=== PATIENT | female | born 1945 | race Caucasian/White ===

== ENCOUNTER 2019-05-23 03:29 | Inpatient (IN) ==
[2019-05-23] MEDS ORDERED: *HR* Heparin 5,000 UNIT/ML VIAL IVP PRN ×2 (06:30)
[2019-05-23] MEDS ORDERED: Heparin 25,000 UNIT/250 ML D5W 25,000 UNIT/250 ML IV.SOLN IVC SCH (06:30)
[2019-05-23 07:26] LABS: Hematocrit 29.2 % (35.3-44.9); Hemoglobin 9.5 g/dL (11.5-15.4); Mean Corpuscular HGB Conc 32.5 g/dL (31.6-35.5); Mean Corpuscular Hemoglobin 28.3 pg (28.0-33.3); Mean Corpuscular Volume 86.9 fL (83.0-100.0); Mean Platelet Volume 9.8 fL (9.4-12.4); Platelet Count 275 K/mcL (140-400); Red Blood Count 3.36 M/mcL (3.82-4.97); Red Cell Distribution Width 15.8 % (11.5-14.5); White Blood Count 12.1 K/mcL (4.3-11.1)
[2019-05-23 07:38] LABS: Heparin anti-factor XA UFH 0.78 IU/mL (0.30-0.70); INR 1.3
[2019-05-23 08:59] LABS: BUN/Creatinine Ratio 9 (6-26); Blood Urea Nitrogen 4 mg/dL (8-23); Calcium 8.9 mg/dL (8.6-10.3); Carbon Dioxide 28 mEq/L (23-29); Chloride 94 mEq/L (98-107); Glucose 259 mg/dL (70-105); Osmolality,Calculated 282 (280-300); Potassium 3.9 mEq/L (3.5-5.1); Sodium 133 mEq/L (136-145); eGFR For African Americans > 60 (> 60); eGFR For Non-African Americans > 60 (> 60)
[2019-05-23] MEDS ORDERED: Naloxone 0.4 MG/ML INJ IVP PRN (09:57)
[2019-05-23] MEDS ORDERED: Ondansetron ODT 4 MG TAB.RAPDIS SL PRN (09:57)
[2019-05-23] MEDS ORDERED: Levalbuterol Neb 0.63 MG/3 ML IH PRN (10:03)
[2019-05-23] MEDS ORDERED: D5% in Water 1,000 ML IVC PRN (10:21)
[2019-05-23] MEDS ORDERED: Dextrose Gel 15 GM/37.5 ML TUBE PO PRN ×2 (10:21)
[2019-05-23] MEDS ORDERED: *HR* Dextrose 50 % in Water (Syg) 50 ML SYRINGE IVP PRN (10:21)
[2019-05-23] MEDS ORDERED: Furosemide 40 MG/4 ML VIAL IVP ONE (10:28)
[2019-05-23 10:48] LABS: Magnesium 1.3 mg/dL (1.6-2.6)
[2019-05-23 10:58] LABS: Troponin I 0.04 ng/mL (< 0.04)
[2019-05-23] MEDS ORDERED: cefTRIAXone 1,000 MG in Water for inj. (sterile) 10 ML IVP SCH (11:00)
[2019-05-23] MEDS ORDERED: Azithromycin 500 MG in 0.9 % Sodium Chloride 250 ML IVPB SCH (11:00)
[2019-05-23] MEDS: Ipratropium Neb 0.5 MG NEBULIZER IH SCH ×3 (11:11→19:58)
[2019-05-23] MEDS ORDERED: *HR* LORazepam 2 MG/ML VIAL IVP ONE (11:20)
[2019-05-23] MEDS: MethylPREDNISolone 40 MG/ML VIAL IVP SCH ×3 (11:21→23:31)
[2019-05-23] MEDS: Insulin LISPRO 300 UNITS/3 ML VIAL SQ SCH ×3 (11:21→20:19)
[2019-05-23] MEDS ORDERED: Perflutren Lipid Microsphere 1.3 ML in 0.9 % Sodium Chloride 8.7 ML IVP ONE (17:51)
[2019-05-23] MEDS: cefTRIAXone 1,000 MG in Water for inj. (sterile) 10 ML IVP SCH (18:16)
[2019-05-23 18:32] LABS: % Iron Saturation 8 % (15-50); Iron 22 mcg/dL (50-170); Transferrin 208 mg/dL (203-362)
[2019-05-23 18:49] LABS: Ferritin 76 ng/mL (10-120)
[2019-05-23 18:55] LABS: Folate 20.7 ng/mL (3.0-16.0)
[2019-05-23] MEDS: Levalbuterol Neb 1.25 MG/3 ML IH SCH (21:41)
[2019-05-24 01:29] LABS: Hematocrit 31.3 % (35.3-44.9); Hemoglobin 9.9 g/dL (11.5-15.4); Mean Corpuscular HGB Conc 31.6 g/dL (31.6-35.5); Mean Corpuscular Hemoglobin 27.9 pg (28.0-33.3); Mean Corpuscular Volume 88.2 fL (83.0-100.0); Mean Platelet Volume 9.9 fL (9.4-12.4); Platelet Count 293 K/mcL (140-400); Red Blood Count 3.55 M/mcL (3.82-4.97); Red Cell Distribution Width 15.7 % (11.5-14.5); White Blood Count 8.3 K/mcL (4.3-11.1)
[2019-05-24 01:46] LABS: BUN/Creatinine Ratio 15 (6-26); Blood Urea Nitrogen 7 mg/dL (8-23); Calcium 9.2 mg/dL (8.6-10.3); Carbon Dioxide 29 mEq/L (23-29); Chloride 94 mEq/L (98-107); Glucose 234 mg/dL (70-105); Osmolality,Calculated 280 (280-300); Potassium 3.6 mEq/L (3.5-5.1); Sodium 132 mEq/L (136-145); eGFR For African Americans > 60 (> 60); eGFR For Non-African Americans > 60 (> 60)
[2019-05-24] MEDS: Levalbuterol Neb 1.25 MG/3 ML IH SCH ×4 (03:26→21:37)
[2019-05-24] MEDS: MethylPREDNISolone 40 MG/ML VIAL IVP SCH ×3 (05:28→17:50)
[2019-05-24] MEDS ORDERED: cefTRIAXone 1,000 MG in Water for inj. (sterile) 10 ML IVP SCH (09:00)
[2019-05-24] MEDS ORDERED: Azithromycin 500 MG in 0.9 % Sodium Chloride 250 ML IVPB SCH (09:00)
[2019-05-24] MEDS: levoFLOXacin 750 MG/150 ML 750 MG/150 ML BAG IVPB SCH (09:29)
[2019-05-24] MEDS: Nicotine 21 MG PATCH.TD24 TD SCH (09:30)
[2019-05-24] MEDS: Furosemide 40 MG/4 ML VIAL IVP SCH ×2 (09:30→20:39)
[2019-05-24] MEDS: Apixaban 5 MG TABLET PO SCH ×2 (09:30→20:39)
[2019-05-24] MEDS: Insulin LISPRO 300 UNITS/3 ML VIAL SQ SCH ×4 (09:35→20:39)
[2019-05-24] MEDS: Fluticasone Propionate Nasal 50 MCG/SPRAY BOTTLE NS SCH (09:36)
[2019-05-24] MEDS: Diltiazem CD (24hr) 120 MG CAPSULE PO SCH (09:39)
[2019-05-24] MEDS: Budesonide/Formoterol 160/4.5 1 PUFF INH IH SCH ×2 (10:28→21:36)
[2019-05-24] MEDS ORDERED: *HR* Metoprolol 5 MG/5 ML VIAL IVP PRN (12:00)
[2019-05-24] MEDS: *HR* LORazepam 0.5 MG TABLET PO PRN (13:33)
[2019-05-24] MEDS: cefTRIAXone 1,000 MG in Water for inj. (sterile) 10 ML IVP SCH (17:50)
[2019-05-24] MEDS: Insulin DETEMIR 100 UNIT/ML X5UNITS SQ SCH (21:59)
[2019-05-25] MEDS: MethylPREDNISolone 40 MG/ML VIAL IVP SCH ×5 (01:44→23:05)
[2019-05-25] MEDS: Levalbuterol Neb 1.25 MG/3 ML IH SCH ×4 (03:20→21:37)
[2019-05-25 06:33] LABS: Basophils % 0.1 %; Hematocrit 29.8 % (35.3-44.9); Hemoglobin 9.8 g/dL (11.5-15.4); Immature Granulocytes % 0.6 % (0-4); Lymphocytes # 0.7 K/mcL (0.6-4.6); Lymphocytes % 5.4 %; Mean Corpuscular HGB Conc 32.9 g/dL (31.6-35.5); Mean Corpuscular Hemoglobin 28.7 pg (28.0-33.3); Mean Corpuscular Volume 87.1 fL (83.0-100.0); Mean Platelet Volume 9.6 fL (9.4-12.4); Monocytes # 0.3 K/mcL (0.0-1.3); Monocytes % 2.7 %; Neutrophils # 11.4 K/mcL (1.6-8.9); Platelet Count 283 K/mcL (140-400); Red Blood Count 3.42 M/mcL (3.82-4.97); Red Cell Distribution Width 15.8 % (11.5-14.5); Segmented Neutrophils % 91.2 %
[2019-05-25 06:34] LABS: White Blood Count 12.5 K/mcL (4.3-11.1)
[2019-05-25 06:58] LABS: BUN/Creatinine Ratio 29 (6-26); Blood Urea Nitrogen 16 mg/dL (8-23); Calcium 9.6 mg/dL (8.6-10.3); Carbon Dioxide 35 mEq/L (23-29); Chloride 90 mEq/L (98-107); Glucose 273 mg/dL (70-105); Magnesium 1.6 mg/dL (1.6-2.6); Osmolality,Calculated 293 (280-300); Phosphorous 3.8 mg/dL (2.7-4.5); Potassium 3.5 mEq/L (3.5-5.1); Sodium 136 mEq/L (136-145); eGFR For African Americans > 60 (> 60); eGFR For Non-African Americans > 60 (> 60)
[2019-05-25] MEDS: levoFLOXacin 750 MG/150 ML 750 MG/150 ML BAG IVPB SCH (08:57)
[2019-05-25] MEDS: Insulin LISPRO 300 UNITS/3 ML VIAL SQ SCH ×4 (08:58→21:59)
[2019-05-25] MEDS: Nicotine 21 MG PATCH.TD24 TD SCH (09:01)
[2019-05-25] MEDS: Furosemide 40 MG/4 ML VIAL IVP SCH ×2 (09:02→21:58)
[2019-05-25] MEDS: Diltiazem CD (24hr) 120 MG CAPSULE PO SCH (09:03)
[2019-05-25] MEDS: Apixaban 5 MG TABLET PO SCH ×2 (09:03→21:59)
[2019-05-25] MEDS: Budesonide/Formoterol 160/4.5 1 PUFF INH IH SCH ×2 (10:20→21:37)
[2019-05-25] MEDS: Fluticasone Propionate Nasal 50 MCG/SPRAY BOTTLE NS SCH (10:30)
[2019-05-25] MEDS: cefTRIAXone 1,000 MG in Water for inj. (sterile) 10 ML IVP SCH (17:19)
[2019-05-25] MEDS: Insulin DETEMIR 100 UNIT/ML X5UNITS SQ SCH (21:58)
[2019-05-25] MEDS: *HR* LORazepam 0.5 MG TABLET PO PRN (21:59)
[2019-05-25] MEDS: Acetaminophen 325 MG TABLET PO PRN (21:59)
[2019-05-26] MEDS: Levalbuterol Neb 1.25 MG/3 ML IH SCH ×4 (03:33→22:17)
[2019-05-26] MEDS: MethylPREDNISolone 40 MG/ML VIAL IVP SCH ×2 (05:28→19:54)
[2019-05-26] MEDS ORDERED: MethylPREDNISolone 40 MG/ML VIAL IVP SCH (09:00)
[2019-05-26 09:52] LABS: Basophils % 0.1 %; Eosinophils % 0.1 %; Hematocrit 35.2 % (35.3-44.9); Hemoglobin 11.2 g/dL (11.5-15.4); Lymphocytes # 0.5 K/mcL (0.6-4.6); Lymphocytes % 4.6 %; Mean Corpuscular HGB Conc 31.8 g/dL (31.6-35.5); Mean Corpuscular Hemoglobin 28.3 pg (28.0-33.3); Mean Corpuscular Volume 88.9 fL (83.0-100.0); Mean Platelet Volume 10.2 fL (9.4-12.4); Monocytes # 0.4 K/mcL (0.0-1.3); Monocytes % 3.6 %; Neutrophils # 9.1 K/mcL (1.6-8.9); Platelet Count 326 K/mcL (140-400); Red Blood Count 3.96 M/mcL (3.82-4.97); Red Cell Distribution Width 15.9 % (11.5-14.5); Segmented Neutrophils % 90.6 %
[2019-05-26] MEDS: Furosemide 40 MG/4 ML VIAL IVP SCH ×2 (09:54→19:54)
[2019-05-26] MEDS: levoFLOXacin 750 MG/150 ML 750 MG/150 ML BAG IVPB SCH (09:57)
[2019-05-26] MEDS: Apixaban 5 MG TABLET PO SCH ×2 (10:01→19:53)
[2019-05-26] MEDS: Fluticasone Propionate Nasal 50 MCG/SPRAY BOTTLE NS SCH (10:02)
[2019-05-26] MEDS: Diltiazem CD (24hr) 120 MG CAPSULE PO SCH (10:02)
[2019-05-26] MEDS: Nicotine 21 MG PATCH.TD24 TD SCH (10:03)
[2019-05-26] MEDS: Insulin LISPRO 300 UNITS/3 ML VIAL SQ SCH ×4 (10:03→19:54)
[2019-05-26 10:10] LABS: BUN/Creatinine Ratio 30 (6-26); Blood Urea Nitrogen 21 mg/dL (8-23); Carbon Dioxide 37 mEq/L (23-29); Chloride 87 mEq/L (98-107); Glucose 352 mg/dL (70-105); Magnesium 1.8 mg/dL (1.6-2.6); Osmolality,Calculated 301 (280-300); Phosphorous 3.5 mg/dL (2.7-4.5); Potassium 3.6 mEq/L (3.5-5.1); Sodium 137 mEq/L (136-145); eGFR For African Americans > 60 (> 60); eGFR For Non-African Americans > 60 (> 60)
[2019-05-26] MEDS: Budesonide/Formoterol 160/4.5 1 PUFF INH IH SCH ×2 (10:36→22:17)
[2019-05-26] MEDS ORDERED: Magnesium Oxide 400 MG TABLET PO ONE (12:37)
[2019-05-26 14:25] LABS: Immunoglobulin A (CELIAC) 213 mg/dL (68-408); Immunoglobulin G 459 mg/dL (768-1632); Immunoglobulin M 5 mg/dL (35-263)
[2019-05-26] MEDS: Magic Mouthwash 10 ML UD Cup PO SCH (17:10)
[2019-05-26] MEDS: cefTRIAXone 1,000 MG in Water for inj. (sterile) 10 ML IVP SCH (17:14)
[2019-05-26] MEDS: *HR* LORazepam 0.5 MG TABLET PO PRN (19:53)
[2019-05-26] MEDS: Acetaminophen 325 MG TABLET PO PRN (19:53)
[2019-05-26] MEDS: Insulin DETEMIR 100 UNIT/ML X5UNITS SQ SCH (19:57)
[2019-05-26 22:30] LABS: Kappa Qnt Free Light Chains 1.03 mg/dL (0.33-1.94); Lambda Qnt Free Light Chains 1.24 mg/dL (0.57-2.63)
[2019-05-27] MEDS: Levalbuterol Neb 1.25 MG/3 ML IH SCH ×2 (03:20→10:40)
[2019-05-27] MEDS: MethylPREDNISolone 40 MG/ML VIAL IVP SCH (07:52)
[2019-05-27] MEDS: Magic Mouthwash 10 ML UD Cup PO SCH (07:53)
[2019-05-27] MEDS: Nicotine 21 MG PATCH.TD24 TD SCH (07:53)
[2019-05-27] MEDS: Apixaban 5 MG TABLET PO SCH (07:53)
[2019-05-27] MEDS: Furosemide 40 MG/4 ML VIAL IVP SCH (07:53)
[2019-05-27] MEDS: Diltiazem CD (24hr) 120 MG CAPSULE PO SCH (07:53)
[2019-05-27] MEDS: Fluticasone Propionate Nasal 50 MCG/SPRAY BOTTLE NS SCH (07:54)
[2019-05-27] MEDS: Insulin LISPRO 300 UNITS/3 ML VIAL SQ SCH (07:54)
[2019-05-27] MEDS: levoFLOXacin 750 MG/150 ML 750 MG/150 ML BAG IVPB SCH (07:55)
[2019-05-27] MEDS: Budesonide/Formoterol 160/4.5 1 PUFF INH IH SCH (10:40)
[2019-05-27 11:57] VITALS: BP 149/58
[2019-05-28 02:09] LABS: Alpha 2 Globulin (PEP) 1.31 g/dL (0.48-1.05)
[2019-05-28 09:56] LABS: Immunoglobulin G 502 mg/dL (768-1632)
[2019-05-28 09:57] LABS: IFE Reflexed IFE Done; Immunoglobulin A 235 mg/dL (68-408); Immunoglobulin M 6 mg/dL (35-263)
== END 2019-05-27 12:40 | disposition home health service (06) | DRG 177 ==
LOC: CDU → SUATTDRO 05:09 → CDU 16:08 → SUATTDRO 05-24 14:38 → 2ANU 05-27 05:29 → CDU 05-27 05:43
PROVIDERS: ADMIT Family Medicine; ATTEND Internal Medicine

== ENCOUNTER 2019-11-02 13:47 | Inpatient (IN) ==
[2019-11-02] MEDS ORDERED: Ondansetron 4 MG/2 ML VIAL IVP PRN (15:30)
[2019-11-02] MEDS ORDERED: Naloxone 0.4 MG/ML INJ IVP PRN ×2 (15:30→17:36)
[2019-11-02] MEDS ORDERED: Dextrose Gel 15 GM/37.5 ML TUBE PO PRN ×2 (20:29)
[2019-11-02] MEDS ORDERED: *HR* Dextrose 50 % in Water (Syg) 50 ML SYRINGE IVP PRN (20:29)
[2019-11-02] MEDS ORDERED: D5% in Water 1,000 ML IVC PRN (20:29)
[2019-11-02] MEDS: Insulin LISPRO 300 UNITS/3 ML VIAL SQ SCH (22:18)
[2019-11-03] MEDS ORDERED: Ipratropium/Albuterol Neb 3 ML IH PRN
[2019-11-03] MEDS: Acetaminophen 325 MG TABLET PO PRN ×3 (01:08→15:41)
[2019-11-03 05:40] LABS: Basophils # 0.1 K/mcL (0.0-0.2); Basophils % 0.5 %; Eosinophils # 0.2 K/mcL (0.0-0.6); Eosinophils % 1.4 %; Hematocrit 25.9 % (35.3-44.9); Hemoglobin 7.8 g/dL (11.5-15.4); Immature Granulocytes % 0.5 % (0-4); Lymphocytes # 2.8 K/mcL (0.6-4.6); Lymphocytes % 21.5 %; Mean Corpuscular HGB Conc 30.1 g/dL (31.6-35.5); Mean Corpuscular Hemoglobin 24.8 pg (28.0-33.3); Mean Corpuscular Volume 82.5 fL (83.0-100.0); Mean Platelet Volume 8.9 fL (9.4-12.4); Monocytes # 1.1 K/mcL (0.0-1.3); Monocytes % 8.1 %; Platelet Count 468 K/mcL (140-400); Red Blood Count 3.14 M/mcL (3.82-4.97); Red Cell Distribution Width 16.6 % (11.5-14.5); White Blood Count 13.2 K/mcL (4.3-11.1)
[2019-11-03 06:01] LABS: BUN/Creatinine Ratio 13 (6-26); Blood Urea Nitrogen 6 mg/dL (8-23); Calcium 9.3 mg/dL (8.6-10.3); Carbon Dioxide 37 mEq/L (23-29); Chloride 91 mEq/L (98-107); Glucose 97 mg/dL (70-105); Magnesium 1.5 mg/dL (1.6-2.6); Osmolality,Calculated 276 (280-300); Potassium 3.5 mEq/L (3.5-5.1); Sodium 134 mEq/L (136-145); eGFR For African Americans > 60 (> 60); eGFR For Non-African Americans > 60 (> 60)
[2019-11-03] MEDS: Insulin LISPRO 300 UNITS/3 ML VIAL SQ SCH ×4 (07:30→20:18)
[2019-11-03] MEDS: levoFLOXacin 750 MG/150 ML 750 MG/150 ML BAG IVPB SCH (08:17)
[2019-11-03 09:31] LABS: Estimated Average Glucose 186 mg/dl
[2019-11-03] MEDS: predniSONE 20 MG TABLET PO SCH (15:40)
[2019-11-03] MEDS: Furosemide 20 MG TABLET PO SCH (15:41)
[2019-11-03] MEDS: DilTIAZem CD (24hr) 120 MG CAP.ER.24H PO SCH (15:41)
[2019-11-03] MEDS: Ipratropium/Albuterol Neb 3 ML IH SCH ×3 (15:56→21:20)
[2019-11-03] MEDS: *HR* OxyCODONE Immed Rel 5 MG TABLET PO PRN (17:57)
[2019-11-03] MEDS: *HR* LORazepam 0.5 MG TABLET PO PRN (18:07)
[2019-11-03] MEDS: hydroCHLOROthiazide 25 MG TABLET PO SCH (18:07)
[2019-11-03] MEDS ORDERED: Insulin DETEMIR 100 UNIT/ML X5UNITS SQ SCH (21:00)
[2019-11-04] MEDS ORDERED: Insulin LISPRO 300 UNITS/3 ML VIAL SQ SCH ×2 (01:09→01:11)
[2019-11-04] MEDS: Insulin LISPRO 300 UNITS/3 ML VIAL SQ SCH ×5 (01:33→23:31)
[2019-11-04 02:53] LABS: Basophils % 0.2 %; Eosinophils % 0.1 %; Hematocrit 24.3 % (35.3-44.9); Hemoglobin 7.5 g/dL (11.5-15.4); Immature Granulocytes % 1.4 % (0-4); Lymphocytes # 1.9 K/mcL (0.6-4.6); Lymphocytes % 11.3 %; Mean Corpuscular HGB Conc 30.9 g/dL (31.6-35.5); Mean Corpuscular Hemoglobin 24.9 pg (28.0-33.3); Mean Corpuscular Volume 80.7 fL (83.0-100.0); Mean Platelet Volume 8.9 fL (9.4-12.4); Monocytes # 0.3 K/mcL (0.0-1.3); Monocytes % 1.7 %; Neutrophils # 14.1 K/mcL (1.6-8.9); Platelet Count 471 K/mcL (140-400); Red Blood Count 3.01 M/mcL (3.82-4.97); Red Cell Distribution Width 16.6 % (11.5-14.5); Segmented Neutrophils % 85.3 %; White Blood Count 16.5 K/mcL (4.3-11.1)
[2019-11-04 02:59] LABS: INR 1.4; Prothrombin Time 15.7 Seconds (9.4-12.1)
[2019-11-04 03:12] LABS: BUN/Creatinine Ratio 23 (6-26); Blood Urea Nitrogen 10 mg/dL (8-23); Calcium 9.4 mg/dL (8.6-10.3); Carbon Dioxide 33 mEq/L (23-29); Chloride 89 mEq/L (98-107); Glucose 253 mg/dL (70-105); Osmolality,Calculated 280 (280-300); Potassium 4.2 mEq/L (3.5-5.1); Sodium 131 mEq/L (136-145); eGFR For African Americans > 60 (> 60); eGFR For Non-African Americans > 60 (> 60)
[2019-11-04] MEDS: Ipratropium/Albuterol Neb 3 ML IH SCH ×4 (03:47→22:05)
[2019-11-04] MEDS: hydroCHLOROthiazide 25 MG TABLET PO SCH (08:14)
[2019-11-04] MEDS: DilTIAZem CD (24hr) 120 MG CAP.ER.24H PO SCH (08:14)
[2019-11-04] MEDS: Furosemide 20 MG TABLET PO SCH (08:15)
[2019-11-04] MEDS: predniSONE 20 MG TABLET PO SCH (08:15)
[2019-11-04] MEDS: levoFLOXacin 750 MG/150 ML 750 MG/150 ML BAG IVPB SCH (08:15)
[2019-11-04] MEDS ORDERED: Cefepime HCl 2,000 MG in Water for inj. (sterile) 20 ML IVP SCH (08:28)
[2019-11-04] MEDS ORDERED: *HR* FentaNYL (PF) 100 MCG/2 ML VIAL IVP PRN (09:00)
[2019-11-04] MEDS ORDERED: Ondansetron 4 MG/2 ML VIAL IVP ONE (09:00)
[2019-11-04] MEDS ORDERED: *HR* Dextrose 50 % in Water (Syg) 50 ML SYRINGE ONE (10:22)
[2019-11-04] MEDS ORDERED: *HR* FentaNYL (PF) 100 MCG/2 ML VIAL ONE (10:27)
[2019-11-04] MEDS ORDERED: *HR* Propofol 200 MG/20 ML VIAL IVP ONE (10:28)
[2019-11-04] MEDS ORDERED: Lidocaine -MPF 4% 5 ML AMPUL ONE (10:30)
[2019-11-04] MEDS ORDERED: Lidocaine -MPF 2% 2 ML VIAL ONE (10:30)
[2019-11-04] MEDS ORDERED: Dexamethasone 4 MG/ML VIAL ONE (10:30)
[2019-11-04] MEDS ORDERED: Ondansetron 4 MG/2 ML VIAL ONE (10:30)
[2019-11-04] MEDS ORDERED: EPHEDrine 50 MG/ML VIAL ONE (11:08)
[2019-11-04] MEDS ORDERED: Ipratropium/Albuterol Neb 3 ML IH ONE (12:21)
[2019-11-04] MEDS: Ringers Solution, Lactated 1,000 ML IVC SCH ×2 (12:29→20:11)
[2019-11-04] MEDS: Azithromycin 500 MG in 0.9 % Sodium Chloride 250 ML IVPB SCH (12:30)
[2019-11-04] MEDS ORDERED: Ringer's Solution, Lactated 250 ML IV.SOLN IVC STA (14:03)
[2019-11-04] MEDS ORDERED: Ringers Solution, Lactated 1,000 ML IVC ONE (14:07)
[2019-11-04] MEDS: Acetaminophen 325 MG TABLET PO PRN ×2 (15:37→21:40)
[2019-11-04 19:58] LABS: Appearance of Body Fluid Hazy (Clear); Volume of Body Fluid 15 mL
[2019-11-04 20:07] LABS: Appearance of Body Fluid Hazy (Clear); Volume of Body Fluid 22 mL
[2019-11-04 20:11] LABS: Appearance of Body Fluid Hazy (Clear); Volume of Body Fluid 20 mL
[2019-11-04] MEDS: Cefepime HCl 2,000 MG in Water for inj. (sterile) 20 ML IVP SCH (20:12)
[2019-11-04] MEDS: Insulin DETEMIR 100 UNIT/ML X5UNITS SQ SCH (20:12)
[2019-11-04] MEDS ORDERED: 0.9 % Sodium Chloride 250 ML IVC ONE (20:27)
[2019-11-04] MEDS ORDERED: 0.9 % Sodium Chloride 250 ML ONE (20:45)
[2019-11-04] MEDS ORDERED: *HR* Dextrose 50 % in Water (Vial) 50 ML VIAL IVP PRN (20:47)
[2019-11-04 21:52] LABS: Hemoglobin 6.8 g/dL (11.5-15.4)
[2019-11-05] MEDS: Ipratropium/Albuterol Neb 3 ML IH SCH ×4 (03:49→21:28)
[2019-11-05] MEDS: Acetaminophen 325 MG TABLET PO PRN ×2 (04:31→12:17)
[2019-11-05] MEDS: Cefepime HCl 2,000 MG in Water for inj. (sterile) 20 ML IVP SCH ×3 (04:31→20:40)
[2019-11-05] MEDS: Ringers Solution, Lactated 1,000 ML IVC SCH ×2 (04:47→15:51)
[2019-11-05 04:57] LABS: Hematocrit 26.6 % (35.3-44.9); Hemoglobin 8.4 g/dL (11.5-15.4); Mean Corpuscular HGB Conc 31.6 g/dL (31.6-35.5); Mean Corpuscular Hemoglobin 25.8 pg (28.0-33.3); Mean Corpuscular Volume 81.8 fL (83.0-100.0); Mean Platelet Volume 9.2 fL (9.4-12.4); Platelet Count 428 K/mcL (140-400); Red Blood Count 3.25 M/mcL (3.82-4.97); Red Cell Distribution Width 16.4 % (11.5-14.5)
[2019-11-05 05:04] LABS: White Blood Count 31.5 K/mcL (4.3-11.1)
[2019-11-05 05:10] LABS: BUN/Creatinine Ratio 22 (6-26); Blood Urea Nitrogen 10 mg/dL (8-23); Calcium 9.1 mg/dL (8.6-10.3); Carbon Dioxide 30 mEq/L (23-29); Chloride 92 mEq/L (98-107); Glucose 133 mg/dL (70-105); Osmolality,Calculated 277 (280-300); Potassium 3.6 mEq/L (3.5-5.1); Sodium 133 mEq/L (136-145); eGFR For African Americans > 60 (> 60); eGFR For Non-African Americans > 60 (> 60)
[2019-11-05] MEDS ORDERED: Vancomycin 1 EACH in 0.9 % Sodium Chloride 250 ML IVPB SCH (08:00)
[2019-11-05] MEDS: Insulin LISPRO 300 UNITS/3 ML VIAL SQ SCH ×4 (08:00→20:40)
[2019-11-05] MEDS: hydroCHLOROthiazide 25 MG TABLET PO SCH (08:39)
[2019-11-05] MEDS: Furosemide 20 MG TABLET PO SCH (08:39)
[2019-11-05] MEDS: predniSONE 20 MG TABLET PO SCH (08:49)
[2019-11-05] MEDS: DilTIAZem CD (24hr) 120 MG CAP.ER.24H PO SCH (08:49)
[2019-11-05 10:35] LABS: Hematocrit 28.6 % (35.3-44.9); Hemoglobin 8.9 g/dL (11.5-15.4)
[2019-11-05] MEDS: Tiotropium 18 MCG inhalation IH SCH (11:09)
[2019-11-05 11:50] LABS: Albumin 2.8 g/dL (3.5-5.7); Bilirubin,Direct 0.1 mg/dL (0.0-0.2); Bilirubin,Indirect 0.2 mg/dL (0.0-1.0); Bilirubin,Total 0.3 mg/dL (0.3-1.0); Globulin 2.8 g/dL (2.4-3.5); Magnesium 1.3 mg/dL (1.6-2.6); Phosphorous 3.1 mg/dL (2.7-4.5); Total Protein 5.6 g/dL (6.4-8.9)
[2019-11-05] MEDS: Azithromycin 500 MG in 0.9 % Sodium Chloride 250 ML IVPB SCH (12:17)
[2019-11-05 14:26] LABS: Hematocrit 26.5 % (35.3-44.9); Hemoglobin 8.4 g/dL (11.5-15.4)
[2019-11-05] MEDS: Insulin DETEMIR 100 UNIT/ML X5UNITS SQ SCH (20:40)
[2019-11-06] MEDS: Ipratropium/Albuterol Neb 3 ML IH SCH ×4 (03:29→22:40)
[2019-11-06 04:14] LABS: Hematocrit 29.2 % (35.3-44.9); Hemoglobin 8.9 g/dL (11.5-15.4); Mean Corpuscular HGB Conc 30.5 g/dL (31.6-35.5); Mean Corpuscular Hemoglobin 24.7 pg (28.0-33.3); Mean Corpuscular Volume 81.1 fL (83.0-100.0); Mean Platelet Volume 9.1 fL (9.4-12.4); Platelet Count 483 K/mcL (140-400); Red Cell Distribution Width 16.6 % (11.5-14.5); White Blood Count 23.4 K/mcL (4.3-11.1)
[2019-11-06] MEDS: Ringers Solution, Lactated 1,000 ML IVC SCH (04:32)
[2019-11-06] MEDS: Cefepime HCl 2,000 MG in Water for inj. (sterile) 20 ML IVP SCH ×3 (04:32→20:08)
[2019-11-06 04:33] LABS: BUN/Creatinine Ratio 24 (6-26); Blood Urea Nitrogen 10 mg/dL (8-23); Calcium 9.3 mg/dL (8.6-10.3); Carbon Dioxide 34 mEq/L (23-29); Chloride 95 mEq/L (98-107); Glucose 93 mg/dL (70-105); Osmolality,Calculated 281 (280-300); Potassium 3.3 mEq/L (3.5-5.1); Sodium 136 mEq/L (136-145); eGFR For African Americans > 60 (> 60); eGFR For Non-African Americans > 60 (> 60)
[2019-11-06] MEDS: Furosemide 20 MG TABLET PO SCH ×2 (08:03→08:16)
[2019-11-06] MEDS: predniSONE 20 MG TABLET PO SCH (08:03)
[2019-11-06] MEDS: hydroCHLOROthiazide 25 MG TABLET PO SCH (08:03)
[2019-11-06] MEDS: DilTIAZem CD (24hr) 120 MG CAP.ER.24H PO SCH (08:04)
[2019-11-06] MEDS: Insulin LISPRO 300 UNITS/3 ML VIAL SQ SCH ×4 (08:08→20:09)
[2019-11-06] MEDS ORDERED: Furosemide 20 MG/2 ML VIAL IVP ONE (09:17)
[2019-11-06] MEDS: Tiotropium 18 MCG inhalation IH SCH (10:17)
[2019-11-06] MEDS: Acetaminophen 325 MG TABLET PO PRN ×2 (10:39→17:10)
[2019-11-06] MEDS: *HR* LORazepam 0.5 MG TABLET PO PRN (17:10)
[2019-11-06] MEDS ORDERED: Albumin 25% 25gram/100mL 25 GM/100 ML IV.SOLN IVPB ONE (20:07)
[2019-11-06] MEDS: Apixaban 5 MG TABLET PO SCH (20:08)
[2019-11-07] MEDS ORDERED: 0.9 % Sodium Chloride 500 ML IVC ONE (00:22)
[2019-11-07 00:44] LABS: Hematocrit 29.8 % (35.3-44.9); Hemoglobin 9.1 g/dL (11.5-15.4); Mean Corpuscular HGB Conc 30.5 g/dL (31.6-35.5); Mean Corpuscular Hemoglobin 25.2 pg (28.0-33.3); Mean Corpuscular Volume 82.5 fL (83.0-100.0); Mean Platelet Volume 9.2 fL (9.4-12.4); Platelet Count 458 K/mcL (140-400); Red Blood Count 3.61 M/mcL (3.82-4.97); White Blood Count 19.4 K/mcL (4.3-11.1)
[2019-11-07 00:54] LABS: BUN/Creatinine Ratio 30 (6-26); Blood Urea Nitrogen 13 mg/dL (8-23); Calcium 9.6 mg/dL (8.6-10.3); Carbon Dioxide 37 mEq/L (23-29); Chloride 92 mEq/L (98-107); Glucose 83 mg/dL (70-105); Osmolality,Calculated 279 (280-300); Potassium 4.1 mEq/L (3.5-5.1); Sodium 135 mEq/L (136-145); eGFR For African Americans > 60 (> 60); eGFR For Non-African Americans > 60 (> 60)
[2019-11-07] MEDS ORDERED: *HR* Metoprolol 5 MG/5 ML VIAL IVP ONE (03:17)
[2019-11-07] MEDS: Levalbuterol Neb 1.25 MG/3 ML IH SCH ×6 (04:03→23:47)
[2019-11-07] MEDS: Cefepime HCl 2,000 MG in Water for inj. (sterile) 20 ML IVP SCH ×3 (04:48→20:30)
[2019-11-07] MEDS ORDERED: Furosemide 20 MG/2 ML VIAL IVP ONE ×2 (07:00→17:35)
[2019-11-07] MEDS: Tiotropium 18 MCG inhalation IH SCH (07:42)
[2019-11-07] MEDS: *HR* LORazepam 0.5 MG TABLET PO PRN (08:35)
[2019-11-07] MEDS: Apixaban 5 MG TABLET PO SCH ×2 (08:35→20:32)
[2019-11-07] MEDS: predniSONE 20 MG TABLET PO SCH (08:35)
[2019-11-07] MEDS: DilTIAZem CD (24hr) 120 MG CAP.ER.24H PO SCH (08:36)
[2019-11-07] MEDS: hydroCHLOROthiazide 25 MG TABLET PO SCH (08:36)
[2019-11-07] MEDS: Insulin LISPRO 300 UNITS/3 ML VIAL SQ SCH ×4 (08:36→20:31)
[2019-11-07] MEDS: *HR* OxyCODONE Immed Rel 5 MG TABLET PO PRN (10:54)
[2019-11-07] MEDS: *HR* LORazepam 0.5 MG TABLET PO SCH ×2 (16:52→20:31)
[2019-11-07] MEDS: Fluticasone Propionate Nasal 50 MCG/SPRAY BOTTLE NS SCH (20:32)
[2019-11-08] MEDS: Levalbuterol Neb 1.25 MG/3 ML IH SCH ×3 (03:50→11:03)
[2019-11-08] MEDS: Cefepime HCl 2,000 MG in Water for inj. (sterile) 20 ML IVP SCH ×2 (04:11→11:07)
[2019-11-08 04:38] LABS: Hematocrit 29.9 % (35.3-44.9); Hemoglobin 9.2 g/dL (11.5-15.4); Mean Corpuscular HGB Conc 30.8 g/dL (31.6-35.5); Mean Corpuscular Hemoglobin 25.3 pg (28.0-33.3); Mean Corpuscular Volume 82.4 fL (83.0-100.0); Mean Platelet Volume 9.2 fL (9.4-12.4); Platelet Count 460 K/mcL (140-400); Red Blood Count 3.63 M/mcL (3.82-4.97); Red Cell Distribution Width 16.5 % (11.5-14.5)
[2019-11-08 04:56] LABS: BUN/Creatinine Ratio 45 (6-26); Blood Urea Nitrogen 18 mg/dL (8-23); Calcium 9.3 mg/dL (8.6-10.3); Carbon Dioxide 37 mEq/L (23-29); Chloride 90 mEq/L (98-107); Glucose 189 mg/dL (70-105); Osmolality,Calculated 283 (280-300); Potassium 3.7 mEq/L (3.5-5.1); Sodium 133 mEq/L (136-145); eGFR For African Americans > 60 (> 60); eGFR For Non-African Americans > 60 (> 60)
[2019-11-08] MEDS: Tiotropium 18 MCG inhalation IH SCH (08:07)
[2019-11-08] MEDS ORDERED: Furosemide 20 MG/2 ML VIAL IVP ONE (09:35)
[2019-11-08] MEDS: DilTIAZem CD (24hr) 120 MG CAP.ER.24H PO SCH (10:16)
[2019-11-08] MEDS: *HR* LORazepam 0.5 MG TABLET PO SCH (10:17)
[2019-11-08] MEDS: Apixaban 5 MG TABLET PO SCH (10:17)
[2019-11-08] MEDS: predniSONE 20 MG TABLET PO SCH (10:17)
[2019-11-08] MEDS: Fluticasone Propionate Nasal 50 MCG/SPRAY BOTTLE NS SCH (10:17)
[2019-11-08] MEDS: hydroCHLOROthiazide 25 MG TABLET PO SCH (10:17)
[2019-11-08] MEDS: Acetaminophen 325 MG TABLET PO PRN (10:17)
[2019-11-08] MEDS: Insulin LISPRO 300 UNITS/3 ML VIAL SQ SCH ×2 (10:17→14:00)
[2019-11-08 10:34] VITALS: BP 102/62
[2019-11-08] MEDS: *HR* OxyCODONE Immed Rel 5 MG TABLET PO PRN (11:19)
== END 2019-11-08 14:34 | disposition home health service (06) | DRG 871 ==
LOC: CDU → 3ANU
PROVIDERS: ADMIT Pharmacist; ATTEND Pharmacist

== ENCOUNTER 2019-11-23 12:31 | Inpatient (IN) ==
[2019-11-23] MEDS ORDERED: Acetaminophen 325 MG TABLET PO PRN (16:14)
[2019-11-23] MEDS ORDERED: Naloxone 0.4 MG/ML INJ IVP PRN (16:14)
[2019-11-23] MEDS ORDERED: *HR* Dextrose 50 % in Water (Vial) 50 ML VIAL IVP PRN (16:29)
[2019-11-23] MEDS ORDERED: D5% in Water 1,000 ML IVC PRN (16:29)
[2019-11-23] MEDS ORDERED: Dextrose Gel 15 GM/37.5 ML TUBE PO PRN ×2 (16:29)
[2019-11-23] MEDS ORDERED: Albuterol 2.5 MG/3 ML NEBULIZER IH PRN (16:32)
[2019-11-23] MEDS: Insulin LISPRO 300 UNITS/3 ML VIAL SQ SCH (16:49)
[2019-11-23] MEDS: *HR* Heparin 5,000 UNIT/ML VIAL SQ SCH (17:11)
[2019-11-23] MEDS: *HR* LORazepam 0.5 MG TABLET PO PRN (17:45)
[2019-11-23] MEDS: Ipratropium/Albuterol Neb 3 ML IH SCH ×2 (19:20→22:07)
[2019-11-23] MEDS ORDERED: Insulin DETEMIR 100 UNIT/ML X5UNITS SQ SCH (21:00)
[2019-11-23] MEDS: Budesonide/Formoterol 160/4.5 1 PUFF INH IH SCH (22:04)
[2019-11-24 01:20] LABS: Basophils # 0.1 K/mcL (0.0-0.2); Basophils % 0.4 %; Eosinophils # 0.5 K/mcL (0.0-0.6); Eosinophils % 4.4 %; Hematocrit 31.9 % (35.3-44.9); Hemoglobin 9.7 g/dL (11.5-15.4); Immature Granulocytes % 0.8 % (0-4); Lymphocytes # 2.3 K/mcL (0.6-4.6); Lymphocytes % 19.9 %; Mean Corpuscular HGB Conc 30.4 g/dL (31.6-35.5); Mean Corpuscular Hemoglobin 25.6 pg (28.0-33.3); Mean Corpuscular Volume 84.2 fL (83.0-100.0); Mean Platelet Volume 9.3 fL (9.4-12.4); Monocytes # 0.8 K/mcL (0.0-1.3); Monocytes % 6.9 %; Neutrophils # 7.8 K/mcL (1.6-8.9); Platelet Count 364 K/mcL (140-400); Red Blood Count 3.79 M/mcL (3.82-4.97); Red Cell Distribution Width 18.6 % (11.5-14.5); Segmented Neutrophils % 67.6 %; White Blood Count 11.6 K/mcL (4.3-11.1)
[2019-11-24 01:27] LABS: INR 1.1
[2019-11-24 01:42] LABS: BUN/Creatinine Ratio 29 (6-26); Blood Urea Nitrogen 18 mg/dL (8-23); Calcium 9.1 mg/dL (8.6-10.3); Carbon Dioxide 33 mEq/L (23-29); Chloride 95 mEq/L (98-107); Glucose 153 mg/dL (70-105); Osmolality,Calculated 287 (280-300); Potassium 4.1 mEq/L (3.5-5.1); Sodium 136 mEq/L (136-145); eGFR For African Americans > 60 (> 60); eGFR For Non-African Americans > 60 (> 60)
[2019-11-24] MEDS: *HR* LORazepam 0.5 MG TABLET PO PRN ×2 (03:54→14:51)
[2019-11-24] MEDS: Ipratropium/Albuterol Neb 3 ML IH SCH ×4 (04:13→22:36)
[2019-11-24] MEDS: *HR* Heparin 5,000 UNIT/ML VIAL SQ SCH (05:17)
[2019-11-24] MEDS ORDERED: DilTIAZem CD (24hr) 120 MG CAP.ER.24H PO SCH (09:00)
[2019-11-24] MEDS ORDERED: hydroCHLOROthiazide 25 MG TABLET PO SCH (09:00)
[2019-11-24] MEDS ORDERED: predniSONE 20 MG TABLET PO SCH (09:00)
[2019-11-24] MEDS ORDERED: Cholecalciferol (D-3) 1,000 UNIT (25MCG) TABLET PO SCH (09:00)
[2019-11-24] MEDS: Insulin LISPRO 300 UNITS/3 ML VIAL SQ SCH ×3 (10:57→17:50)
[2019-11-24] MEDS: Budesonide/Formoterol 160/4.5 1 PUFF INH IH SCH ×2 (11:04→22:36)
[2019-11-24] MEDS ORDERED: *HR* Propofol 200 MG/20 ML VIAL IVP ONE ×2 (15:13→16:00)
[2019-11-24] MEDS ORDERED: *HR* Midazolam HCl 2 MG/2 ML VIAL ONE (15:13)
[2019-11-24] MEDS ORDERED: *HR* FentaNYL (PF) 100 MCG/2 ML VIAL ONE ×2 (15:13→16:00)
[2019-11-24] MEDS ORDERED: *HR* Succinylcholine 200 MG/10 ML VIAL IVP ONE (15:15)
[2019-11-24] MEDS ORDERED: Lidocaine -MPF 4% 5 ML AMPUL ONE (15:15)
[2019-11-24] MEDS ORDERED: Dexamethasone 4 MG/ML VIAL ONE ×2 (15:15→16:03)
[2019-11-24] MEDS ORDERED: Lidocaine -MPF 2% 2 ML VIAL ONE ×2 (15:15→16:03)
[2019-11-24] MEDS ORDERED: Ondansetron 4 MG/2 ML VIAL ONE ×2 (15:15→16:03)
[2019-11-24] MEDS ORDERED: Clindamycin 900 MG/50 ML 900 MG/50 ML IV.SOLN IVPB ONE ×2 (15:44→16:31)
[2019-11-24] MEDS ORDERED: Lidocaine HCL 4 ML Topical Solution (Laryng-O-Jet Kit Sterile Pak) TP ONE (16:39)
[2019-11-24] MEDS ORDERED: *HR* PHENYLEPHRINE 1,000 MCG/10 ML SYRINGE IVP ONE ×2 (16:56→17:34)
[2019-11-24] MEDS ORDERED: Albumin Human 5% 12.5 GM/250 ML IV.SOLN ONE (17:09)
[2019-11-24] MEDS ORDERED: Acetaminophen 325 MG TABLET PO PRN (19:13)
[2019-11-24] MEDS ORDERED: D5% in Water 1,000 ML IVC PRN (19:13)
[2019-11-24] MEDS ORDERED: *HR* LORazepam 0.5 MG TABLET PO PRN (19:13)
[2019-11-24] MEDS ORDERED: Dextrose Gel 15 GM/37.5 ML TUBE PO PRN ×2 (19:13)
[2019-11-24] MEDS ORDERED: Albuterol 2.5 MG/3 ML NEBULIZER IH PRN (19:13)
[2019-11-24] MEDS ORDERED: Naloxone 0.4 MG/ML INJ IVP PRN (19:13)
[2019-11-24] MEDS ORDERED: *HR* Dextrose 50 % in Water (Vial) 50 ML VIAL IVP PRN (19:13)
[2019-11-24] MEDS ORDERED: Fluticasone Propionate Nasal 50 MCG/SPRAY BOTTLE NS SCH (21:00)
[2019-11-24] MEDS: Fluticasone Propionate Nasal 50 MCG/SPRAY BOTTLE NS SCH (21:28)
[2019-11-24] MEDS: Apixaban 5 MG TABLET PO SCH (21:28)
[2019-11-24] MEDS: Insulin DETEMIR 100 UNIT/ML X5UNITS SQ SCH (22:26)
[2019-11-24] MEDS: Clindamycin 900 MG/50 ML 900 MG/50 ML IV.SOLN IVPB SCH (23:55)
[2019-11-25 01:47] LABS: Basophils % 0.1 %; Hematocrit 27.2 % (35.3-44.9); Hemoglobin 8.5 g/dL (11.5-15.4); Immature Granulocytes % 0.8 % (0-4); Lymphocytes # 0.8 K/mcL (0.6-4.6); Lymphocytes % 7.9 %; Mean Corpuscular HGB Conc 31.3 g/dL (31.6-35.5); Mean Corpuscular Hemoglobin 26.3 pg (28.0-33.3); Mean Corpuscular Volume 84.2 fL (83.0-100.0); Mean Platelet Volume 9.8 fL (9.4-12.4); Monocytes # 0.2 K/mcL (0.0-1.3); Monocytes % 1.6 %; Neutrophils # 9.1 K/mcL (1.6-8.9); Platelet Count 310 K/mcL (140-400); Red Blood Count 3.23 M/mcL (3.82-4.97); Segmented Neutrophils % 89.6 %; White Blood Count 10.2 K/mcL (4.3-11.1)
[2019-11-25 02:04] LABS: BUN/Creatinine Ratio 28 (6-26); Blood Urea Nitrogen 24 mg/dL (8-23); Calcium 8.7 mg/dL (8.6-10.3); Carbon Dioxide 32 mEq/L (23-29); Chloride 91 mEq/L (98-107); Glucose 462 mg/dL (70-105); Osmolality,Calculated 294 (280-300); Potassium 4.7 mEq/L (3.5-5.1); Sodium 130 mEq/L (136-145); eGFR For African Americans > 60 (> 60); eGFR For Non-African Americans > 60 (> 60)
[2019-11-25] MEDS ORDERED: Insulin LISPRO 300 UNITS/3 ML VIAL SQ ONE (03:23)
[2019-11-25] MEDS ORDERED: Insulin DETEMIR 100 UNIT/ML X5UNITS SQ ONE ×2 (03:25→15:59)
[2019-11-25] MEDS: Ipratropium/Albuterol Neb 3 ML IH SCH ×4 (03:54→22:37)
[2019-11-25] MEDS ORDERED: Insulin Human Regular 10 UNIT in 0.9 % Sodium Chloride 10 ML IV ONE (05:07)
[2019-11-25] MEDS ORDERED: Insulin Human Regular 7 UNIT in 0.9 % Sodium Chloride 10 ML IV ONE (05:13)
[2019-11-25] MEDS: Cholecalciferol (D-3) 1,000 UNIT (25MCG) TABLET PO SCH (08:07)
[2019-11-25] MEDS: Apixaban 5 MG TABLET PO SCH ×2 (08:07→19:41)
[2019-11-25] MEDS: hydroCHLOROthiazide 25 MG TABLET PO SCH (08:07)
[2019-11-25] MEDS: DilTIAZem CD (24hr) 120 MG CAP.ER.24H PO SCH (08:07)
[2019-11-25] MEDS: Clindamycin 900 MG/50 ML 900 MG/50 ML IV.SOLN IVPB SCH (08:07)
[2019-11-25] MEDS: Insulin LISPRO 300 UNITS/3 ML VIAL SQ SCH ×3 (08:11→18:17)
[2019-11-25] MEDS: Fluticasone Propionate Nasal 50 MCG/SPRAY BOTTLE NS SCH ×2 (08:12→19:43)
[2019-11-25] MEDS: Budesonide/Formoterol 160/4.5 1 PUFF INH IH SCH ×2 (10:45→22:36)
[2019-11-25] MEDS: Insulin DETEMIR 100 UNIT/ML X5UNITS SQ SCH (20:10)
[2019-11-26] MEDS: Ipratropium/Albuterol Neb 3 ML IH SCH ×2 (04:16→11:10)
[2019-11-26] MEDS: Insulin LISPRO 300 UNITS/3 ML VIAL SQ SCH ×2 (07:16→11:43)
[2019-11-26] MEDS: Cholecalciferol (D-3) 1,000 UNIT (25MCG) TABLET PO SCH (07:24)
[2019-11-26] MEDS: DilTIAZem CD (24hr) 120 MG CAP.ER.24H PO SCH (07:24)
[2019-11-26] MEDS: hydroCHLOROthiazide 25 MG TABLET PO SCH (07:24)
[2019-11-26] MEDS: Apixaban 5 MG TABLET PO SCH (07:24)
[2019-11-26] MEDS: Fluticasone Propionate Nasal 50 MCG/SPRAY BOTTLE NS SCH (07:26)
[2019-11-26 10:55] VITALS: BP 125/64
[2019-11-26] MEDS: Budesonide/Formoterol 160/4.5 1 PUFF INH IH SCH (11:10)
[2019-11-26 12:06] LABS: Basophils % 0.1 %; Eosinophils # 0.1 K/mcL (0.0-0.6); Eosinophils % 0.8 %; Hematocrit 27.7 % (35.3-44.9); Hemoglobin 8.6 g/dL (11.5-15.4); Immature Granulocytes % 0.5 % (0-4); Lymphocytes # 2.9 K/mcL (0.6-4.6); Lymphocytes % 19.2 %; Mean Corpuscular Hemoglobin 25.8 pg (28.0-33.3); Mean Corpuscular Volume 83.2 fL (83.0-100.0); Mean Platelet Volume 9.6 fL (9.4-12.4); Monocytes % 6.6 %; Neutrophils # 11.1 K/mcL (1.6-8.9); Platelet Count 345 K/mcL (140-400); Red Blood Count 3.33 M/mcL (3.82-4.97); Red Cell Distribution Width 18.2 % (11.5-14.5); Segmented Neutrophils % 72.8 %; White Blood Count 15.2 K/mcL (4.3-11.1)
[2019-11-26 12:26] LABS: BUN/Creatinine Ratio 47 (6-26); Blood Urea Nitrogen 21 mg/dL (8-23); Carbon Dioxide 28 mEq/L (23-29); Chloride 91 mEq/L (98-107); Glucose 160 mg/dL (70-105); Osmolality,Calculated 274 (280-300); Potassium 3.6 mEq/L (3.5-5.1); Sodium 129 mEq/L (136-145); eGFR For African Americans > 60 (> 60); eGFR For Non-African Americans > 60 (> 60)
[2019-11-26] MEDS ORDERED: Insulin DETEMIR 100 UNIT/ML X5UNITS SQ SCH (21:00)
== END 2019-11-26 14:52 | disposition home health service (06) | DRG 481 ==
LOC: 3NENU
PROVIDERS: ADMIT Internal Medicine; ATTEND Internal Medicine